=== PATIENT | female | born 1985 | race Caucasian/White ===

== ENCOUNTER → 2021-03-14 11:55 | Outpatient (CLI) | payer OTHER, SELFPAY ==
--- NOTE | ~2021-03-14 | US_ITS ---
EXAMINATION: US thyroid EXAM DATE: 03/14/2021 12:22 INDICATION: Thyroid function test abnormal. TECHNIQUE: Multiple grayscale and Doppler images of the thyroid were obtained (by a technologist who performed the scan) and subsequently reviewed. Individual nodules and recommendations may be reporte d in accordance with TI-RADS system as designated by the 2017 ACR White Paper TI-RADS committee. The re is no prior study for comparison. FINDINGS: Right thyroid lobe measures 4.8 x 3.1 x 2.0 cm, the left measuring 4.2 x 1.1 x 1.2 cm. There is mildl y diffusely heterogeneous thyroid echogenicity with scattered right lobe nodules. Largest right thyroid lobe nodule measures up to 2.0 cm, solid (2 points), hypoechoic (2 points), wid er than tall, smooth well defined margin, containing punctate echogenic foci consistent with microcal cification (3 points), category TR5 for this nodule. Additionally, suspect multiple extrathyroid nodules of soft tissue likely lymphadenopathy, largest me asuring 2.9 x 1.7 x 2.7 cm. This could be metastatic lymphadenopathy. IMPRESSION: 1. Right-sided cervical lymphadenopathy suspicious for metastatic disease. 2. Multiple right thyroid lobe nodules; ultrasound guided biopsy of the largest indicated. Recommend obtaining neck CT with contrast, and then ultrasound-guided biopsy of the largest thyroid nodule. I discussed this case with Shanell in the office of Michelle Santos PA-C at 03/14/2021 14:20 CDT, who was not available at time of the phone call. I requested message left be left for her to review this rep ort. Reviewed, dictated and finalized at location B. IMPRESSION: 1. Right-sided cervical lymphadenopathy suspicious for metastatic disease. 2. Multiple right thyroid lobe nodules; ultrasound guided biopsy of the larges t indicated. Recommend obtaining neck CT with contrast, and then ultrasound-peace ded biopsy of the largest thyroid nodule. I discussed this case with Shanell in the office of Michelle Santos PA-C at 021 14:20 CDT, who was not available at time of the phone call. I requested sheri anderson left be left for her to review this report.
== END ==
PROVIDERS: PCP Physician Assistant; Visit Provider Physician Assistant
DX: R94.6 Abnormal results of thyroid function studies (principal); E04.2 Nontoxic multinodular goiter
CPT/HCPCS: 76536